=== PATIENT | female | born 1950 | race Native Hawaiian/Other Pacific Islander ===

== ENCOUNTER 2023-04-26 11:59 | Emergency (ER) | payer OTHER, MEDICARE ==
[~2023-04-26] VITALS: Ht 160 cm; Wt 65.9 kg
[2023-04-26 12:06] VITALS: BP 184/92; PULSE 96; RESP 16; TEMP 98
== END 2023-04-26 13:59 | disposition left against medical advice (07) ==
LOC: EMS 12:01
DX: R04.0 Epistaxis (principal); Z53.21 Procedure and treatment not carried out due to patient leaving prior to being seen by health care provider
CPT/HCPCS: 99281; Z7502